=== PATIENT | male | born 1940 | race Caucasian/White ===

== ENCOUNTER → 2017-05-30 | Outpatient (CLI) | payer MEDICARE ==
[~2017-05-30] MED LIST: REGADENOSON 0.4 MG/5 ML SYRINGE ONE
== END | disposition home or self-care (01) ==
LOC: MERGE 07:56 → CFH 07:56
PROVIDERS: ATTEND Internal Medicine Cardiovascular Disease
DX: R94.31 Abnormal electrocardiogram [ECG] [EKG] (principal); R06.02 Shortness of breath; I10 Essential (primary) hypertension; R01.1 Cardiac murmur, unspecified
CPT/HCPCS: 78452; 93017; A9502; J2785

== ENCOUNTER → 2017-05-31 | Outpatient (CLI) | payer MEDICARE | END | disposition home or self-care (01) | LOC: CVU 14:15 → MERGE 15:00 | PROVIDERS: ATTEND Internal Medicine Cardiovascular Disease | DX: I10 Essential (primary) hypertension (principal); R09.89 Other specified symptoms and signs involving the circulatory and respiratory systems | CPT/HCPCS: 93306; 93880 ==

== ENCOUNTER 2017-06-09 07:50 | Day surgery (SDC) | payer MEDICARE ==
[2017-06-08 13:10] VITALS: BP 139/62
[2017-06-08 13:19] LABS: ASPARTATE AMINO TRANSFERASE 11 U/L (15-37); BLOOD UREA NITROGEN 9 mg/dL (7-18)
[2017-06-08 13:32] LABS: HEMATOCRIT 30.8 % (39.2-51.8); HEMOGLOBIN 9.1 g/dL (13.7-18.0); WHITE BLOOD COUNT 8.9 x10^3/uL (3.4-10)
[2017-06-08 14:04] LABS: ANISOCYTOSIS 2+; MICROCYTOSIS 1+; OVALOCYTES 1+; POIKILOCYTOSIS 1+
[~2017-06-09] VITALS: Ht 177.8 cm; Wt 105.0 kg
[~2017-06-09 07:50] MED LIST changes: +ALBU8.5H8 PO; +BENA20TA2 PO; +DILT420C10 PO; +IPRA4AER PO; +LOVA40TA2 PO; +OMEP-110 PO; -REGADENOSON 0.4 MG/5 ML SYRINGE ONE; +TAMS0.4C2 PO
[2017-06-09] MEDS ORDERED: SODIUM CHLORIDE 0.9% 1,000 ML IV SCH (08:00)
[2017-06-09] MEDS ORDERED: FENTANYL PF 100 MCG/2ML ONE (08:43)
[2017-06-09] MEDS ORDERED: MIDAZOLAM 1 MG/ML, 5ML ONE (08:43)
[2017-06-09] MEDS ORDERED: HEPARIN 1,000 UNITS/ML, 10ML ONE (08:43)
[2017-06-09] MEDS ORDERED: VERAPAMIL 2.5 MG/ML, 2ML ONE (08:43)
[2017-06-09] MEDS ORDERED: LIDOCAINE 2%, 20ML ONE (08:43)
[2017-06-09] MEDS ORDERED: PROPOFOL 10 MG/ML, 20ML ONE (09:09)
[2017-06-09 14:53] LABS: TOTAL IRON BINDING CAPACITY 418 mcg/dL (250-450)
== END 2017-06-09 15:18 | disposition home or self-care (01) ==
LOC: CACL 07:50
PROVIDERS: ATTEND Internal Medicine Cardiovascular Disease
DX: I35.0 Nonrheumatic aortic (valve) stenosis (principal); I34.0 Nonrheumatic mitral (valve) insufficiency; I07.1 Rheumatic tricuspid insufficiency; I10 Essential (primary) hypertension; E78.5 Hyperlipidemia, unspecified; F17.210 Nicotine dependence, cigarettes, uncomplicated; J44.9 Chronic obstructive pulmonary disease, unspecified; K21.9 Gastro-esophageal reflux disease without esophagitis; Z79.01 Long term (current) use of anticoagulants
CPT/HCPCS: 36415; 80053; 83540; 83550; 85025; 85610; 85730; 93312; 93321; 93325; 93460; 99156; 99157; C1769; C1894; J1644; J2250; J2704; J3010; J3490; Q9967

== ENCOUNTER 2021-06-30 22:49 | Inpatient (IN) | payer MEDICARE ==
[~2021-06-30] VITALS: Ht 175.3 cm; Wt 141.0 kg
[~2021-06-30 22:49] MED LIST changes: +AMIO200T42 PO; +ASPI81TA45 PO; +BECL8.7A7 INH; -BENA20TA2 PO; +BENA20TA54 PO; +CEPH-376 PO; +FURO-92 PO; +HYDR-2214 PO; +METO25TA35 PO; +POTA20TA91 PO; +WARF5TAB2 PO
[2021-06-30] MEDS ORDERED: FUROSEMIDE 40 MG/4 ML IV ONE (23:30)
[2021-06-30 23:45] LABS: MEAN CORPUSCULAR HEMOGLOBIN 19.6 pg (27.5-34.5); PLATELET COUNT 379 x10^3/uL (130-400); RED BLOOD COUNT 3.14 x10^6/uL (4.38-5.82); RED CELL DISTRIBUTION WIDTH 17.2 % (9.4-14.8)
[2021-06-30] MEDS ORDERED: FUROSEMIDE 40 MG/4 ML ONE (23:51)
[2021-06-30 23:52] LABS: ALANINE AMINOTRANSFERASE 45 U/L (12-78); ALBUMIN 3.1 g/dL (3.4-5.0); ANION GAP 4 mmol/L (5-15); CALCIUM 8.3 mg/dL (8.5-10.1); CHLORIDE 97 mmol/L (98-107); CREATININE 1.25 mg/dL (0.7-1.3)
[2021-06-30 23:55] LABS: INTERNATIONAL NORMALIZED RATIO 1.21 (0.93-1.1); PROTHROMBIN TIME 12.8 Seconds (9.6-11.5)
[2021-06-30 23:57] LABS: ALKALINE PHOSPHATASE 119 U/L (45-117); BILIRUBIN,TOTAL 0.8 mg/dL (0.2-1.0); MEAN CORPUSCULAR HGB CONC 28.8 g/dL (33.2-36.2); TOTAL PROTEIN 6.7 g/dL (6.4-8.2); TROPONIN I 0.021 ng/mL (0.000-0.045)
[2021-07-01] VITALS (11 sets, daily range): BP systolic 112–145; BP diastolic 49–69
[2021-07-01] MEDS ORDERED: LIDOCAINE 2%,20 ML JEL.PF.APP MM ONE ×2 (00:03→00:30)
--- NOTE | 2021-07-01 00:06 | NUR ---
PT PRESENTS TO ER FOR LOW H/H LEVELS, PT STATED THAT HIS DOCTOR CALLED HIM AND TOLD HIM TO COME TO THE ER
--- NOTE | 2021-07-01 00:13 | NUR ---
THIS RN WAS GOING TO APPLY A CONDOM CATHETER TO PT PRIOR TO ADMINISTERING LASIX BUT PTS PENIS WAS RETRACTED, NOTIFIED AND STATED TO PUT IN A YANG INSTEAD
--- NOTE | 2021-07-01 00:20 | NUR ---
ER MD AT BEDSIDE TO ASSESS PTS GENITALS BECAUSE WHEN THIS RN WENT TO INSERT YANG PTS SCROTUM AND PENIS WERE SWOLLEN, ER MD STATED THAT PT IS FLUID OVER LOADED AND ONCE FLUID RETENTION GOES DOWN THEN PTS GENITALS SHOULD START TO RETURN TO NORMAL
[2021-07-01 00:28] LABS: ANISOCYTOSIS 1+; BAND#(MANUAL) 0.23 x10^3/uL; BANDS%(MANUAL) 2 % (0-7); BASOS#(MANUAL) 0.11 x10^3/uL (0-0.1); BASOS% (MANUAL) 1 % (0-1); LYMPH#(MANUAL) 1.13 x10^3/uL (1-3.4); LYMPHS% (MANUAL) 10 % (22-44); MONOS#(MANUAL) 1.58 x10^3/uL (0.3-2.7); MONOS% (MANUAL) 14 % (2-9); SEG#(MANUAL) 8.25 x10^3/uL (1.8-6.8); SEGS% (MANUAL) 73 % (42-75)
[2021-07-01 00:29] LABS: HYPOCHROMIA 2+; MICROCYTOSIS 2+; OVALOCYTES 1+; POLYCHROMASIA 1+
[2021-07-01 00:30] LABS: <PLATELET ESTIMATE> ADEQUATE; TARGET CELLS 1+; TEAR DROPS 1+
[2021-07-01 00:32] LABS: <PLT MORPHOLOGY> NORMAL PLT MORPH
[2021-07-01] MEDS ORDERED: PANTOPRAZOLE 40 MG IV ONE (00:50)
[2021-07-01] MEDS: PANTOPRAZOLE 40 MG IV IVPush SCH (00:52)
--- NOTE | 2021-07-01 01:26 | NUR ---
TP RN: PT. WITH [facility] [employer]. DECLINE BY [facility] AT [facility].
--- NOTE | 2021-07-01 02:38 | NUR ---
THIS RN FAILED MULTIPLE ATTEMPTS TO INSERT A YANG CATHETER DUE TO EDEMATOUS GENITALS, STATED ONCE EDEMA GOES DOWN THEN WE CAN TRY AGAIN, THIS RN PROVIDED URINALS FOR PT BUT HE DENIED THE URINAL AND WAS CONTENT USING BEDSIDE COMODE, BROTHER AT BEDSIDE FOR ASSITANCE, CALL LIGHT IN REACH, PT INSTRUCTED TO CALL THIS RN FOR ANY ASSISTANCE AND TO NOT GET UP ON HIS OWN
--- NOTE | 2021-07-01 03:53 | NUR ---
BLOOD COMPLETED INFUSING, PT HAD NO ADVERSE REACTIONS, PT SLEEPING IN BED NOW, ALL NEEDS IN REACH, CALL LIGHT IN REACH, NAD AT THIS TIME, VSS
--- NOTE | 2021-07-01 04:38 | NUR ---
PT ASLEEP IN BED, ALL NEEDS IN REACH, CALL LIGHT IN REACH, NAD AT THIS TIME, VSS
--- NOTE | 2021-07-01 08:04 | NUR ---
DISCUSSED WITH DR NICHOLS PT H&H OF 6.7 AND 22.5. PT TO RECEIVE 2ND UNIT OF BLOOD. OK FOR PT TO HAVE CLEAR LIQUID DIET.
[2021-07-01] MEDS ORDERED: SODIUM CHLORIDE 0.9% 250 ML IV ONE (08:30)
--- NOTE | 2021-07-01 09:02 | NUR ---
PT UP TO BSC, PT WITH MULTIPLE C/O "THAT DOCTOR. 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 PT WITH MULTIPLE C/O ABOUT NOT BEING ABLE TO EAT. DISCUSSED WITH PT HGB ONLY CAME UP TO 6.7 AFTER 1 UNIT OF BLOOD AND SECOND UNIT ORDERED. PT ASKING ABOUT AM MEDS. PT WITH WATER AT BEDSIDE. PTS BROTHER AT BEDSIDE.
--- NOTE | 2021-07-01 09:05 | NUR ---
SECOND UNIT OF BLOOD REQUESTE FROM BLOOD BANK
--- NOTE | 2021-07-01 09:23 | NUR ---
UNIT OF PRBC STARTED.
[2021-07-01] MEDS ORDERED: AMIODARONE 200 MG TABLET ONE (09:26)
[2021-07-01] MEDS ORDERED: TAMSULOSIN 0.4 MG CAP.ER.24H ONE (09:26)
[2021-07-01] MEDS: AMIODARONE 200 MG TABLET PO SCH ×2 (09:31→09:52)
[2021-07-01] MEDS ORDERED: TIOT4MIS3 INH (09:44)
--- NOTE | 2021-07-01 09:46 | NUR ---
ORESTES PTS BROTHER [phone], PRBC INFUSING WITHOUT REDNESS/SWELLING. NO S/S OF ADVERSE REACTION. REVIEWED PTS MED LIST WITH PT. "I DONT TAKE AMIODARONE AND I TAKE FLOMAX AT NIGHT. PT ALSO TAKES AN ANTIDEPRESSANT, UNKNOWN NAME
[2021-07-01] MEDS ORDERED: SERT-331 PO (10:18)
--- NOTE | 2021-07-01 10:32 | NUR ---
PT DOZING INTERMITTENTLY, AROUSES EASILY. TAKING PO FLUIDS WITHOUT DIFFICULTY. NO S/S OF ADVERSE REACTION TO BLOOD TRANSFUSION. CONT TO WAIT FOR INPATIENT ROOM ASSIGNMENT. NO NEEDS EXPRESSED AT THIS TIME.
[2021-07-01] MEDS: BENAZEPRIL 20 MG TABLET PO SCH (10:58)
--- NOTE | 2021-07-01 11:18 | NUR ---
PT DOZING INTERMITTENTLY, AROUSES EASILY. IV STARTED IN LEFT HAND FOR PT COMFORT. PRBC CONT TO INFUSE WITHOUT S/S OF ADVERSE EFFECT. PO FLUIDS AT BEDSIDE. NO OTHER NEEDS EXPRESSED AT THIS TIME.
--- NOTE | 2021-07-01 12:26 | NUR ---
PRBC COMPLETED. NO S/S OF ADVERSE REACTION. PT DOZING INTERMITTENTLY, AROUSES TO NAME AND TOUCH. NO NEEDS EXPRESSED AT THIS TIME.
--- NOTE | 2021-07-01 13:10 | NUR ---
PT UP TO [facility] [place] [facility] WITH SBA. PAVING INSPECTOR IN TO DRAW LABS. PT PROVIDED WITH ICE CHIPS. NO OTHER NEEDS EXPRESSED AT THIS TIME.
--- NOTE | 2021-07-01 13:22 | NUR ---
Break RN note: Pt resting in bed, eating ice chips, NADN. Hospital bed requested for pt.
[2021-07-01] MEDS ORDERED: TAMSULOSIN 0.4 MG CAP.ER.24H PO SCH (13:30)
--- NOTE | 2021-07-01 14:09 | NUR ---
PT TRANSFERED TO HOSPITAL BED. PT DOZING INTERMITTENTLY, AROUSES EASILY. SR PER MONITOR. AUTO BP IN PLACE. PT PROVIDED WITH CHICKEN BROTH AND ICE CHIPS PER REQUEST. NO OTHER NEEDS EXPRESSED AT THIS TIME.
--- NOTE | 2021-07-01 14:23 | NUR ---
ARCHANA REQUESTED FROM PHARMACY
--- NOTE | 2021-07-01 14:32 | NUR ---
PT REQUESTING "TUSSINEX DM AND ITS LIKE MUCINEX" CALL TO DR STERLING DISCUSSED THAT PT DOESNT TAKE AMIODARONE AND TAKES FLOMAX AT HS. ORDERS TO BE PLACED.
[2021-07-01] MEDS ORDERED: ALBUTEROL SULFATE 2.5 MG/3 ML NPPB PRN (15:00)
--- NOTE | 2021-07-01 15:43 | NUR ---
Mapper: pt's brother Robb , brother requesting update
--- NOTE | 2021-07-01 16:24 | NUR ---
PT UP TO BSC WITH ASSIST. NO ACTIVE BLEEDING NOTED. NO SIG CHANGE IN CONDITION NOTED. PTS BROTHER ORESTES AT BEDSIDE.
[2021-07-01] MEDS: IRON SUCROSE COMPLEX 100MG/5ML IV SCH (16:53)
--- NOTE | 2021-07-01 17:02 | NUR ---
VENOFER GIVEN OVER 5 MINUTES. NO HYPERSENTIVITY REACTION NOTED.
--- NOTE | 2021-07-01 17:44 | NUR ---
NO HYPERSENSITIVITY REACTION NOTED. PT SITTING AT SIDE OF BED INTERMITTENTLY, HAD CLEAR LIQUID DIET. TAKING PO FLUIDS WITHOUT DIFFICULTY.
[2021-07-01] MEDS ORDERED: FUROSEMIDE 40 MG/4 ML ONE (18:54)
[2021-07-01] MEDS: FUROSEMIDE 40 MG/4 ML IV SCH (18:56)
--- NOTE | 2021-07-01 18:58 | NUR ---
REPORT TO KORY FIGUEROA. PT AWARE OF ROOM ASSIGNMENT.
--- NOTE | 2021-07-01 19:29 | NUR ---
PT ASSISTED TO BSC AT THIS TIME, SMALL ASSIST REQUIRED
--- NOTE | 2021-07-01 19:34 | NUR ---
REPORT TO DAYNA FIGUEROA PT READY FOR TRANSFER AT THIS TIME.
--- NOTE | 2021-07-01 20:00 | NUR ---
PT RN: SPOKE WITH BREANNA FIELD AT [facility]. PT DENIED TRANSFER.
[2021-07-01] MEDS: SERTRALINE 50MG TABLET PO SCH (22:20)
[2021-07-01] MEDS: TAMSULOSIN 0.4 MG CAP.ER.24H PO SCH (22:20)
[2021-07-01] MEDS: LOVASTATIN 40 MG TABLET PO SCH (22:20)
[2021-07-01] MEDS: GUAIFENESIN/DM 200-20MG, 10ML UDC PO PRN (22:21)
[2021-07-01] MEDS: NYSTATIN TOPICAL POWDER 15GM TP SCH (22:25)
[2021-07-01] MEDS: ALBUTEROL HFA 90 MCG/SPRAY INH PRN (23:07)
[2021-07-02 00:29] VITALS: BP 133/49
[2021-07-02] MEDS: ALBUTEROL HFA 90 MCG/SPRAY INH PRN ×4 (04:04→22:26)
[2021-07-02 06:37] LABS: CHLORIDE 97 mmol/L (98-107)
[2021-07-02 06:42] LABS: ANION GAP 5 mmol/L (5-15); CALCIUM 8.3 mg/dL (8.5-10.1); CREATININE 1.01 mg/dL (0.7-1.3)
[2021-07-02 07:00] VITALS: BP 126/67
[2021-07-02] MEDS: FUROSEMIDE 40 MG/4 ML IV SCH ×2 (08:51→16:44)
[2021-07-02] MEDS: IRON SUCROSE COMPLEX 100MG/5ML IV SCH (08:51)
[2021-07-02] MEDS: OMEPRAZOLE 20 MG CAPSULE.DR PO SCH (08:52)
[2021-07-02] MEDS: BENAZEPRIL 20 MG TABLET PO SCH (08:52)
[2021-07-02] MEDS: PANTOPRAZOLE 40 MG IV IVPush SCH (08:52)
[2021-07-02] MEDS: NYSTATIN TOPICAL POWDER 15GM TP SCH ×3 (08:52→22:27)
[2021-07-02] MEDS: MOVIPREP POWDER 1 PREP KIT PO SCH ×2 (11:06→16:44)
[2021-07-02] MEDS: GUAIFENESIN/DM 200-20MG, 10ML UDC PO PRN (12:38)
[2021-07-02] MEDS: SERTRALINE 50MG TABLET PO SCH (22:24)
[2021-07-02] MEDS: TAMSULOSIN 0.4 MG CAP.ER.24H PO SCH (22:24)
[2021-07-02] MEDS: LOVASTATIN 40 MG TABLET PO SCH (22:25)
[2021-07-03 00:42] VITALS: BP 124/69
[2021-07-03] MEDS: ALBUTEROL HFA 90 MCG/SPRAY INH PRN ×3 (04:12→20:20)
[2021-07-03 06:41] VITALS: BP 147/77
[2021-07-03 06:42] LABS: BASOPHILS % (AUTO) 1 % (0-1); EOSINOPHILS % (AUTO) 3 % (1-7); LYMPHOCYTES % (AUTO) 9 % (22-44); MEAN CORPUSCULAR HEMOGLOBIN 21.2 pg (27.5-34.5); MEAN PLATELET VOLUME 7.7 fL (7.4-10.4); MONOCYTES % (AUTO) 10 % (2-9); NEUTROPHILS % (AUTO) 77 % (42-75); PLATELET COUNT 281 x10^3/uL (130-400); RED BLOOD COUNT 3.48 x10^6/uL (4.38-5.82); RED CELL DISTRIBUTION WIDTH 19.3 % (9.4-14.8)
[2021-07-03 06:48] LABS: MEAN CORPUSCULAR HGB CONC 29.7 g/dL (33.2-36.2)
[2021-07-03 06:55] LABS: CHLORIDE 99 mmol/L (98-107)
[2021-07-03 07:01] LABS: ALANINE AMINOTRANSFERASE 33 U/L (12-78); ALBUMIN 2.9 g/dL (3.4-5.0); ALKALINE PHOSPHATASE 116 U/L (45-117); ANION GAP 4 mmol/L (5-15); BILIRUBIN,TOTAL 1.1 mg/dL (0.2-1.0); CALCIUM 8.5 mg/dL (8.5-10.1); CREATININE 1.02 mg/dL (0.7-1.3)
[2021-07-03] MEDS ORDERED: TEMPLATE NON-FORMULARY MED. (Tiotropium Br/Olodaterol HCl (Stiolto Respimat Inhal Spray) 2 INH PRN (07:30)
[2021-07-03] MEDS ORDERED: ALBUTEROL HFA 90 MCG/SPRAY INH ONE (07:30)
[2021-07-03] MEDS ORDERED: FENTANYL PF 100 MCG/2ML ONE (07:48)
[2021-07-03] MEDS ORDERED: MIDAZOLAM 1 MG/ML, 2ML ONE (07:48)
[2021-07-03] MEDS ORDERED: PROPOFOL 10 MG/ML, 20ML ONE (07:49)
[2021-07-03] MEDS: OMEPRAZOLE 20 MG CAPSULE.DR PO SCH (07:55)
[2021-07-03] MEDS: FUROSEMIDE 40 MG/4 ML IV SCH ×2 (07:55→16:46)
[2021-07-03] MEDS ORDERED: morphine SULFATE 10 MG/ML, 1ML IVPush PRN (08:00)
[2021-07-03] MEDS ORDERED: LABETALOL 5MG/ML, 20ML IV PRN (08:00)
[2021-07-03] MEDS ORDERED: hydrALAzine 20 MG/ML, 1ML IV PRN (08:00)
[2021-07-03] MEDS ORDERED: PROMETHAZINE 25 MG/ML, 1ML IVPush PRN (08:00)
[2021-07-03] MEDS ORDERED: FENTANYL PF 100 MCG/2ML IV PRN (08:00)
[2021-07-03] MEDS ORDERED: ONDANSETRON 2MG/ML, 2ML IVPush PRN (08:00)
[2021-07-03] MEDS ORDERED: OXYcodone 5 MG/5 ML ORAL.SOL UDC PO PRN (08:00)
[2021-07-03] MEDS: NYSTATIN TOPICAL POWDER 15GM TP SCH ×3 (08:14→20:20)
[2021-07-03] MEDS ORDERED: IRON SUCROSE COMPLEX 100MG/5ML ONE ×2 (13:53→13:55)
[2021-07-03] MEDS: BENAZEPRIL 20 MG TABLET PO SCH (13:57)
[2021-07-03] MEDS: PANTOPRAZOLE 40 MG IV IVPush SCH (13:57)
[2021-07-03] MEDS: IRON SUCROSE COMPLEX 100MG/5ML IV SCH (13:58)
[2021-07-03 20:06] VITALS: BP 123/65
[2021-07-03] MEDS: GUAIFENESIN/DM 200-20MG, 10ML UDC PO PRN (20:20)
[2021-07-03] MEDS: TAMSULOSIN 0.4 MG CAP.ER.24H PO SCH (20:22)
[2021-07-03] MEDS: SERTRALINE 50MG TABLET PO SCH (20:22)
[2021-07-03] MEDS: LOVASTATIN 40 MG TABLET PO SCH (20:24)
[2021-07-04 01:20] VITALS: BP 112/61
[2021-07-04 04:14] LABS: BASOPHILS % (AUTO) 1 % (0-1); EOSINOPHILS % (AUTO) 4 % (1-7); LYMPHOCYTES % (AUTO) 9 % (22-44); MEAN CORPUSCULAR HEMOGLOBIN 21.3 pg (27.5-34.5); MEAN PLATELET VOLUME 7.3 fL (7.4-10.4); MONOCYTES % (AUTO) 13 % (2-9); NEUTROPHILS % (AUTO) 74 % (42-75); PLATELET COUNT 334 x10^3/uL (130-400); RED BLOOD COUNT 3.49 x10^6/uL (4.38-5.82); RED CELL DISTRIBUTION WIDTH 19.9 % (9.4-14.8)
[2021-07-04 04:21] LABS: ALBUMIN 2.6 g/dL (3.4-5.0); ANION GAP 1 mmol/L (5-15); CALCIUM 8.1 mg/dL (8.5-10.1); CHLORIDE 97 mmol/L (98-107)
[2021-07-04 04:26] LABS: ALANINE AMINOTRANSFERASE 31 U/L (12-78); ALKALINE PHOSPHATASE 114 U/L (45-117); CREATININE 1.16 mg/dL (0.7-1.3); TOTAL PROTEIN 6.1 g/dL (6.4-8.2)
[2021-07-04 05:04] LABS: MEAN CORPUSCULAR HGB CONC 29.1 g/dL (33.2-36.2)
[2021-07-04] MEDS: GUAIFENESIN/DM 200-20MG, 10ML UDC PO PRN ×2 (05:09→12:07)
[2021-07-04 07:52] VITALS: BP 111/57
[2021-07-04] MEDS: FUROSEMIDE 40 MG/4 ML IV SCH ×2 (08:05→16:06)
[2021-07-04] MEDS: PANTOPRAZOLE 40 MG IV IVPush SCH (08:05)
[2021-07-04] MEDS: BENAZEPRIL 20 MG TABLET PO SCH (08:06)
[2021-07-04] MEDS: OMEPRAZOLE 20 MG CAPSULE.DR PO SCH (08:06)
[2021-07-04] MEDS: NYSTATIN TOPICAL POWDER 15GM TP SCH ×3 (08:06→20:19)
[2021-07-04] MEDS: ALBUTEROL HFA 90 MCG/SPRAY INH PRN ×3 (08:06→16:37)
[2021-07-04] MEDS: METOPROLOL TARTRATE 25 MG TAB PO SCH ×2 (09:42→20:19)
[2021-07-04 13:59] VITALS: BP 116/67
[2021-07-04 19:37] VITALS: BP 110/62
[2021-07-04] MEDS: LOVASTATIN 40 MG TABLET PO SCH (20:19)
[2021-07-04] MEDS: TAMSULOSIN 0.4 MG CAP.ER.24H PO SCH (20:20)
[2021-07-04] MEDS: SERTRALINE 50MG TABLET PO SCH (20:20)
[2021-07-05 00:14] VITALS: BP 120/70
[2021-07-05] MEDS: ALBUTEROL HFA 90 MCG/SPRAY INH PRN (01:41)
[2021-07-05 05:48] LABS: BASOPHILS % (AUTO) 1 % (0-1); EOSINOPHILS % (AUTO) 4 % (1-7); LYMPHOCYTES % (AUTO) 9 % (22-44); MEAN CORPUSCULAR HEMOGLOBIN 21.9 pg (27.5-34.5); MEAN PLATELET VOLUME 7.4 fL (7.4-10.4); MONOCYTES % (AUTO) 11 % (2-9); NEUTROPHILS % (AUTO) 75 % (42-75); PLATELET COUNT 320 x10^3/uL (130-400); RED BLOOD COUNT 3.39 x10^6/uL (4.38-5.82); RED CELL DISTRIBUTION WIDTH 19.8 % (9.4-14.8)
[2021-07-05 05:50] LABS: MEAN CORPUSCULAR HGB CONC 29.9 g/dL (33.2-36.2)
[2021-07-05 05:55] LABS: ALBUMIN 2.8 g/dL (3.4-5.0); CALCIUM 8.1 mg/dL (8.5-10.1); CHLORIDE 96 mmol/L (98-107)
[2021-07-05 05:58] LABS: ALANINE AMINOTRANSFERASE 29 U/L (12-78); ALKALINE PHOSPHATASE 110 U/L (45-117); BILIRUBIN,TOTAL 0.7 mg/dL (0.2-1.0); CREATININE 0.97 mg/dL (0.7-1.3); TOTAL PROTEIN 6.4 g/dL (6.4-8.2)
[2021-07-05 06:02] VITALS: BP 131/67
[2021-07-05 06:14] LABS: HYPOCHROMIA 2+
[2021-07-05 06:15] LABS: ANISOCYTOSIS 1+; MICROCYTOSIS 1+; OVALOCYTES 1+; POLYCHROMASIA 1+
[2021-07-05 06:16] LABS: <PLATELET ESTIMATE> ADEQUATE; <PLT MORPHOLOGY> NORMAL PLT MORPH; TARGET CELLS 1+
[2021-07-05 06:28] LABS: ANION GAP 4 mmol/L (5-15)
[2021-07-05] MEDS: BENAZEPRIL 20 MG TABLET PO SCH (07:22)
[2021-07-05] MEDS: OMEPRAZOLE 20 MG CAPSULE.DR PO SCH (07:22)
[2021-07-05] MEDS: FUROSEMIDE 40 MG/4 ML IV SCH ×2 (07:23→16:48)
[2021-07-05] MEDS: NYSTATIN TOPICAL POWDER 15GM TP SCH ×3 (07:23→21:06)
[2021-07-05] MEDS: METOPROLOL TARTRATE 25 MG TAB PO SCH ×2 (07:23→21:05)
[2021-07-05 15:19] VITALS: BP 119/67
[2021-07-05] MEDS: TAMSULOSIN 0.4 MG CAP.ER.24H PO SCH (21:05)
[2021-07-05] MEDS: SERTRALINE 50MG TABLET PO SCH (21:05)
[2021-07-05] MEDS: LOVASTATIN 40 MG TABLET PO SCH (21:05)
[2021-07-05 21:08] VITALS: BP 119/72
[2021-07-06] MEDS: GUAIFENESIN/DM 200-20MG, 10ML UDC PO PRN (02:13)
[2021-07-06 02:14] VITALS: BP 118/65
[2021-07-06 05:58] LABS: BASOPHILS % (AUTO) 1 % (0-1); EOSINOPHILS % (AUTO) 3 % (1-7); LYMPHOCYTES % (AUTO) 10 % (22-44); MEAN CORPUSCULAR HEMOGLOBIN 22.3 pg (27.5-34.5); MEAN CORPUSCULAR HGB CONC 30.3 g/dL (33.2-36.2); MEAN PLATELET VOLUME 7.4 fL (7.4-10.4); MONOCYTES % (AUTO) 10 % (2-9); NEUTROPHILS % (AUTO) 76 % (42-75); PLATELET COUNT 281 x10^3/uL (130-400); RED CELL DISTRIBUTION WIDTH 20.3 % (9.4-14.8)
[2021-07-06 06:01] LABS: ANION GAP 2 mmol/L (5-15); CALCIUM 8.1 mg/dL (8.5-10.1); CHLORIDE 96 mmol/L (98-107); CREATININE 1.01 mg/dL (0.7-1.3)
[2021-07-06 08:15] VITALS: BP 134/64
[2021-07-06] MEDS: FUROSEMIDE 40 MG/4 ML IV SCH ×2 (08:24→16:44)
[2021-07-06] MEDS: OMEPRAZOLE 20 MG CAPSULE.DR PO SCH (08:25)
[2021-07-06] MEDS: BENAZEPRIL 20 MG TABLET PO SCH (08:25)
[2021-07-06] MEDS: NYSTATIN TOPICAL POWDER 15GM TP SCH ×3 (08:25→20:34)
[2021-07-06] MEDS: METOPROLOL TARTRATE 25 MG TAB PO SCH ×2 (08:25→20:32)
[2021-07-06 15:43] VITALS: BP 131/74
[2021-07-06 19:49] VITALS: BP 146/72
[2021-07-06] MEDS: TAMSULOSIN 0.4 MG CAP.ER.24H PO SCH (20:32)
[2021-07-06] MEDS: SERTRALINE 50MG TABLET PO SCH (20:32)
[2021-07-06] MEDS: LOVASTATIN 40 MG TABLET PO SCH (20:32)
[2021-07-07 00:20] VITALS: BP 135/70
[2021-07-07 06:04] LABS: BASOPHILS % (AUTO) 1 % (0-1); EOSINOPHILS % (AUTO) 4 % (1-7); LYMPHOCYTES % (AUTO) 10 % (22-44); MEAN PLATELET VOLUME 7.6 fL (7.4-10.4); MONOCYTES % (AUTO) 11 % (2-9); NEUTROPHILS % (AUTO) 75 % (42-75); PLATELET COUNT 272 x10^3/uL (130-400); RED BLOOD COUNT 3.48 x10^6/uL (4.38-5.82); RED CELL DISTRIBUTION WIDTH 21.5 % (9.4-14.8)
[2021-07-07 06:08] LABS: CALCIUM 8.5 mg/dL (8.5-10.1); CHLORIDE 95 mmol/L (98-107); CREATININE 0.87 mg/dL (0.7-1.3)
[2021-07-07 06:16] LABS: MEAN CORPUSCULAR HGB CONC 29.4 g/dL (33.2-36.2)
[2021-07-07 06:19] LABS: ANION GAP 5 mmol/L (5-15)
[2021-07-07 07:01] VITALS: BP 148/71
[2021-07-07] MEDS: FUROSEMIDE 40 MG/4 ML IV SCH (07:39)
[2021-07-07] MEDS: OMEPRAZOLE 20 MG CAPSULE.DR PO SCH (07:40)
[2021-07-07] MEDS ORDERED: FERROUS SULFATE 325 MG TABLET PO SCH (09:00)
[2021-07-07] MEDS ORDERED: LACTOBACILLUS CHEW TABLET PO SCH (09:00)
[2021-07-07] MEDS ORDERED: CARVEDILOL 6.25 MG TABLET PO SCH (09:30)
[2021-07-07] MEDS: BENAZEPRIL 20 MG TABLET PO SCH (09:56)
[2021-07-07] MEDS: NYSTATIN TOPICAL POWDER 15GM TP SCH (09:57)
[2021-07-07] MEDS ORDERED: ACID1TAB7 PO (10:48)
[2021-07-07] MEDS ORDERED: FURO-92 PO (10:48)
[2021-07-07] MEDS ORDERED: CARV6.2512 PO (10:48)
[2021-07-07] MEDS ORDERED: NYST15PO2 TP (10:48)
[2021-07-07] MEDS ORDERED: FERR-36 PO (10:48)
[2021-07-07 12:52] VITALS: BP 123/63
[2021-07-07] MEDS ORDERED: FUROSEMIDE 40 MG TABLET PO SCH (17:00)
== END 2021-07-07 14:50 | DRG 377 ==
LOC: ED 07-01 00:47 → EDIP 07-01 01:27 → 4WST 07-01 20:23
PROVIDERS: ADMIT Family Medicine; ATTEND Hospitalist
PROC: 30233N1 Transfusion of Nonautologous Red Blood Cells into Peripheral Vein, Percutaneous Approach (ICD-10-PCS; 2021-07-01)
PROC: 0DJD8ZZ Inspection of Lower Intestinal Tract, Via Natural or Artificial Opening Endoscopic (ICD-10-PCS; 2021-07-03)
PROC: 0DB98ZX Excision of Duodenum, Via Natural or Artificial Opening Endoscopic, Diagnostic (ICD-10-PCS; principal; 2021-07-03 08:00)
PROC: 0DB68ZX Excision of Stomach, Via Natural or Artificial Opening Endoscopic, Diagnostic (ICD-10-PCS; 2021-07-03 08:00)
DX: K57.31 Diverticulosis of large intestine without perforation or abscess with bleeding (principal); I50.33 Acute on chronic diastolic (congestive) heart failure; J96.11 Chronic respiratory failure with hypoxia; I38 Endocarditis, valve unspecified; Z68.42 Body mass index [BMI] 45.0-49.9, adult; D50.9 Iron deficiency anemia, unspecified; D72.829 Elevated white blood cell count, unspecified; E66.01 Morbid (severe) obesity due to excess calories; F32.9 Major depressive disorder, single episode, unspecified; G47.30 Sleep apnea, unspecified; I11.0 Hypertensive heart disease with heart failure; I45.10 Unspecified right bundle-branch block; J44.9 Chronic obstructive pulmonary disease, unspecified; K64.9 Unspecified hemorrhoids; K90.0 Celiac disease; N40.0 Benign prostatic hyperplasia without lower urinary tract symptoms; K29.71 Gastritis, unspecified, with bleeding; Z20.822 Contact with and (suspected) exposure to COVID-19; R53.81 Other malaise; Z79.82 Long term (current) use of aspirin; Z87.891 Personal history of nicotine dependence; Z95.2 Presence of prosthetic heart valve; Z99.81 Dependence on supplemental oxygen; Z82.49 Family history of ischemic heart disease and other diseases of the circulatory system
CPT/HCPCS: 36415; 36430; 71045; 80048; 80053; 82728; 83540; 83550; 83880; 84484; 85014; 85018; 85025; 85610; 85730; 86850; 86900; 86923; 87635; 88305; 93005; 93306; 96374; 96375; 99291; G0378; J1756; J1940; J2250; J2704; J3010; C9113; J7050; P9016